=== PATIENT | female | born 1970 | race Caucasian/White ===

== ENCOUNTER 2019-10-17 19:48 | Emergency (ER) | payer BC ==
[~2019-10-17] VITALS: Ht 157.5 cm; Wt 116.8 kg
[2019-10-17 19:58] VITALS: Ht 157.5 cm; Wt 116.8 kg
[2019-10-17] MEDS ORDERED: I (20:01)
[2019-10-17] MEDS ORDERED: B/P PILL (20:02)
[2019-10-17 20:23] LABS: BASOPHILS 0.2 % (0-2); EOSINOPHILS 0 % (0-7); HEMATOCRIT 39.9 % (36.0-48.0); HEMOGLOBIN 13.1 g/dL (12-16); IMMATURE GRANULOCYTES 0.3 % (0-5); LYMPHOCYTES 10.2 % (15-50); MCHC 32.8 g/dL (31.0-37.0); MCV 94.3 fL (80.0-100.0); MEAN PLATELET VOLUME 10.3 fL (7.4-10.4); MONOCYTES 3.2 % (2-11); NEUTROPHILS 86.1 % (40-80); PLATELET COUNT 283 10x3/uL (130-400); RBC 4.23 10x6/uL (4.00-5.40); RDW 12.7 % (11.5-14.5); WBC 11.7 10x3/uL (4.8-10.8)
[2019-10-17 20:29] LABS: BILIRUBIN NEGATIVE (NEGATIVE); KETONE SMALL mg/dL (NEGATIVE); UROBILINOGEN NORMAL (NORMAL)
[2019-10-17 20:31] LABS: HCG URINE NEGATIVE (NEGATIVE)
[2019-10-17 20:33] LABS: BACTERIA FEW /hpf (NONE SEEN); EPITHELIAL CELLS 0-5 /hpf (0-5); NITRITE NEGATIVE (NEGATIVE); RED CELLS - URINE 0-5 /hpf (0-5); WHITE CELLS - URINE 0-5 /hpf (0-5)
[2019-10-17 20:36] LABS: ANION GAP 13.9 mmol/L (8-16); CALCIUM 9.1 mg/dL (8.5-10.1); CARBON DIOXIDE 27.2 mmol/L (21.0-32.0); CREATININE - SERUM 1.2 mg/dL (0.6-1.3); POTASSIUM - SERUM 4.1 mmol/L (3.5-5.1)
[2019-10-17 20:44] LABS: BILIRUBIN - TOTAL 0.67 mg/dL (0.2-1.3); PROTEIN - SERUM 7.7 g/dL (6.4-8.2)
[2019-10-17] MEDS ORDERED: HYDROCODON-ACE1 EA10 PO (23:02)
[2019-10-17] MEDS ORDERED: LEVOFLOXACIN500 MG PO (23:02)
[2019-10-17] MEDS ORDERED: FLOMAX0.4 MG PO (23:02)
[2019-10-17] MEDS ORDERED: PHENERGAN25 M1 PO (23:02)
[2019-10-17 23:37] VITALS: BP 119/76
== END 2019-10-17 23:36 | disposition home or self-care (01) ==
LOC: D.ER 19:48
PROVIDERS: Family Medicine
DX: N20.0 Calculus of kidney (principal); I10 Essential (primary) hypertension